=== PATIENT | female | born 1965 | race Caucasian/White ===

== ENCOUNTER 2017-02-15 09:26 | Emergency (ER) | payer SELFPAY ==
[2017-02-15 09:46] VITALS: TEMP 97.9; O2SAT 97
--- NOTE | 2017-02-15 10:58 | RAD ---
EXAM DESCRIPTION: Chest,2 Views CLINICAL HISTORY: 51 years, Female, sob, edema, wt gain COMPARISON: July 2007 FINDINGS: Slightly shallow inspiration. No definite consolidation. Borderline heart size. Mild elevation right hemidiaphragm. IMPRESSION: Chronic lung change with borderline heart size Electronically signed by: Jomar Queen MD 02/15/2017 10:58 AM CDT
[2017-02-15 11:22] VITALS: BP 117/69
--- NOTE | 2017-02-15 11:30 | ED.PDOC ---
History of Present Illness - General Chief Complaint: Cardiovascular Problem Stated Complaint: swelling in lower legs Time Seen by Provider: 02/15/17 09:47 Source: patient Exam Limitations: no limitations - History of Present Illness Initial Comments: the patient is a 51-year-old female presenting to the emergency room secondary to symptoms of shortness of breath and leg swelling. The patient quit doing methamphetamines approximately 3 months ago and has started antidepressant and antipsychotic medications with [facility]. Since that time she reports that she is gaining more than 60 pounds. She also reports that she does have a history of hypothyroidism and has been off her Synthroid for more than 3 years. No chest pain. No cough. No syncope or near syncope. No palpitations. No history of any coronary artery disease. She does have a history of hepatitis C. No recent urinary symptoms. No orthopnea or paroxysmal nocturnal dyspnea. her appetite has of coarse increased since going off of the methamphetamines and starting antipsychotic medications. Timing/Duration: constant Severity: moderate Improving Factors: rest Worsening Factors: movement Associated Symptoms: malaise Allergies/Adverse Reactions: Allergies NO KNOWN ALLERGY Allergy (Verified 03/01/15 11:39) Home Medications: Ambulatory Orders Cephalexin Monohydrate [Keflex] 500 mg PO TID #15 cap 02/15/17 Hydrochlorothiazide 12.5 mg PO DAILY #14 tab 02/15/17 Levothyroxine Sodium [Synthroid] 125 mcg PO DAILY #30 tab 02/15/17 Risperidone [Risperdal] 2 mg PO BID 02/15/17 Trazodone HCl 100 mg PO BEDTIME 02/15/17 Review of Systems - Review of Systems Constitutional: States: malaise EENTM: States: no symptoms reported Respiratory: States: short of breath Cardiology: States: no symptoms reported Gastrointestinal/Abdominal: States: no symptoms reported Genitourinary: States: no symptoms reported Musculoskeletal: States: muscle stiffness Skin: States: no symptoms reported Neurological: States: anxiety, depressed Endocrine: States: no symptoms reported All other Systems: No Change from Baseline Past Medical History (General) - Patient Medical History Hx Seizures: No Hx Stroke: No Hx Asthma: No Hx of COPD: No Hx Cardiac Disorders: No Hx Congestive Heart Failure: No Hx Pacemaker: No Hx Hypertension: No Hx Thyroid Disease: Yes Hx Diabetes: No Hx Hepatitis C: Yes Hx MRSA: Yes - Abdomen Wound MRSA Source:: Wound Surgical History: cholecystectomy - Vaccination History Hx Tetanus, Diphtheria Vaccination: - >5 yrs Hx Influenza Vaccination: No - Social History Hx Tobacco Use: Yes Hx Alcohol Use: No 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, Meth Hx Physical Abuse: No Hx Emotional Abuse: No - Female History Patient : No Family Medical History - Family History Mother Name: Nuris Sandoval Age (years): 67 Living Status: Still Living Hx Family Asthma: No Hx Family Congestive Heart Failure: No Hx Family Hypertension: No Hx Family Stroke: No Hx Cardiac Disease: No Hx Family Diabetes: No Hx Family Cancer: Yes - breast Physical Exam - Physical Exam General Appearance: Alert, Comfortable, No apparent distress Eye Exam: bilateral normal Ears, Nose, Throat: normal ENT inspection, normal pharynx Neck: full range of motion, supple, normal inspection Respiratory: chest non-tender, lungs clear, normal breath sounds, no respiratory distress, no accessory muscle use Cardiovascular/Chest: normal peripheral pulses, regular rate, rhythm Peripheral Pulses: radial,right: 2+, radial,left: 2+, dorsalis pedis,right: 2+, dorsalis pedis,left: 2+, posterior tibialis,right: 2+, posterior tibialis,left: 2+ Gastrointestinal/Abdominal: non tender, soft - bese Rectal Exam: deferred Back Exam: normal inspection, no CVA tenderness, no vertebral tenderness Extremity: normal range of motion, non-tender, no calf tenderness, normal capillary refill, pedal edema - 1+ to bilateral lower extremities Neurologic: alert, normal mood/affect, oriented x 3 Skin Exam: normal color Comments: Vital Signs - 24 hr 02/15/17 02/15/17 09:41 11:22 Temperature 97.9 F Pulse Rate [ 98 H 79 Right Brachial] Respiratory 20 16 Rate Blood Pressure 127/83 117/69 [Right Arm] O2 Sat by Pulse 97 97 Oximetry Progress - Progress Progress: 02/15/17 11:32 the patient is a 51-year-old female presenting to the emergency room primarily due to increasing shortness of breath with activity and some swelling on her legs and increasing difficulty getting around. I do believe most of this is due to her significant weight gain. For the edema the patient will be placed on hydrochlorothiazide 12.5 mg daily for the next couple of weeks. The patient does have significant hypothyroidism as evidenced by lab work today that is likely contributing as well. She is going to be placed on 125 g of Synthroid daily for one month. She will need to have this followed up in 1 month for reevaluation. The patient also has a small urinary tract infection and will be placed on Keflex 3 times daily for 5 days. The appetite stimulant effects of the psychiatric medications may be increasing her weight gain, however at this point in time they are necessary. It is possible the patient may be starting to experience some other side effects from these medications and she has been encouraged to discuss them with her psychiatrist to see if she needs to be started on something along the lines of Cogentin. This may aid in her progressive ambulatory difficulties. ER warnings were given. She does need to get set up with a primary care doctor. She does need to be treated for her hepatitis C, after her acute medical needs are dealt with. - Results/Orders Results/Orders: Laboratory Tests 02/15/17 02/15/17 02/15/17 09:48 10:00 10:00 WBC 8.2 RBC 4.50 Hgb 13.9 Hct 41.0 MCV 91.1 MCH 31.0 MCHC 34.0 RDW 13.8 Plt Count 162 MPV 8.2 Absolute Neuts (auto) 5.00 Absolute Lymphs (auto) 2.20 Absolute Monos (auto) 0.60 Absolute Eos (auto) 0.30 Absolute Basos (auto) 0.10 Neutrophils % 61.7 Lymphocytes % 26.6 Monocytes % 7.4 Eosinophils % 3.1 Basophils % 1.2 Sodium 136 Potassium 3.7 Chloride 103 Carbon Dioxide 27 Anion Gap 9.7 L BUN 14 Creatinine 0.63 BUN/Creatinine Ratio 22.2 H Random Glucose 130 H Serum Osmolality 274.2 L Calcium 8.8 Total Bilirubin 0.7 AST 87 H ALT 116 H Alkaline Phosphatase 83 Creatine Kinase 203 H* CK-MB (CK-2) 3.4 CK-MB (CK-2) % Not Reportable Troponin I < 0.02 B-Natriuretic Peptide 23.3 Serum Total Protein 7.3 Albumin 3.4 Globulin 3.9 H Albumin/Globulin Ratio 0.9 L TSH 15.84 H Urine Color Urine Appearance Urine pH Ur Specific [place] Urine Protein Urine Glucose (UA) Urine Ketones Urine Blood Urine Nitrite Urine Bilirubin Urine Urobilinogen Ur Leukocyte Esterase Urine RBC Urine WBC Ur Epithelial Cells Urine Bacteria Urine Trichomonas Urine HCG, Qual Negative 02/15/17 10:30 WBC RBC Hgb Hct MCV MCH MCHC RDW Plt Count MPV Absolute Neuts (auto) Absolute Lymphs (auto) Absolute Monos (auto) Absolute Eos (auto) Absolute Basos (auto) Neutrophils % Lymphocytes % Monocytes % Eosinophils % Basophils % Sodium Potassium Chloride Carbon Dioxide Anion Gap BUN Creatinine BUN/Creatinine Ratio Random Glucose Serum Osmolality Calcium Total Bilirubin AST ALT Alkaline Phosphatase Creatine Kinase CK-MB (CK-2) CK-MB (CK-2) % Troponin I B-Natriuretic Peptide Serum Total Protein Albumin Globulin Albumin/Globulin Ratio TSH Urine Color Yellow Urine Appearance Clear Urine pH 5.5 Ur Specific [place] 1.020 Urine Protein Negative Urine Glucose (UA) Negative Urine Ketones Negative Urine Blood Small H Urine Nitrite Negative Urine Bilirubin Negative Urine Urobilinogen 0.2 Ur Leukocyte Esterase Moderate H Urine RBC 5-10 H Urine WBC 5-10 H Ur Epithelial Cells 5-10 Urine Bacteria 1+ Urine Trichomonas 0-1 H Urine HCG, Qual chest x-ray shows no gross evidence of fluid overload. No pneumonia. EKG shows normal sinus rhythm with a mild right axis deviation. Mild left atrial dilation. No acute ST segment changes concerning for ischemia. Normal QT and SD intervals. Departure - Departure Clinical Impression: Peripheral edema, Cystitis Hypothyroidism Qualifiers: Hypothyroidism type: unspecified Qualified Code(s): E03.9 - Hypothyroidism, unspecified Disposition: Discharge to Home or Self Care Condition: Fair Departure Forms: ED Discharge - Pt. Copy, Patient Portal Self Enrollment Instructions: DI for Hypothyroidism, DI for Peripheral Edema -- Bilateral, DI for Urinary Tract Infection (UTI) Diet: low fat, low cholesterol Activity: increase activity as tolerated Prescriptions: Cephalexin Monohydrate [Keflex] 500 mg PO TID #15 cap Hydrochlorothiazide 12.5 mg PO DAILY #14 tab Levothyroxine Sodium [Synthroid] 125 mcg PO DAILY #30 tab Home Medications: Ambulatory Orders Cephalexin Monohydrate [Keflex] 500 mg PO TID #15 cap 02/15/17 Hydrochlorothiazide 12.5 mg PO DAILY #14 tab 02/15/17 Levothyroxine Sodium [Synthroid] 125 mcg PO DAILY #30 tab 02/15/17 Risperidone [Risperdal] 2 mg PO BID 02/15/17 Trazodone HCl 100 mg PO BEDTIME 02/15/17 Additional Instructions: the patient is a 51-year-old female presenting to the emergency room primarily due to increasing shortness of breath with activity and some swelling on her legs and increasing difficulty getting around. I do believe most of this is due to her significant weight gain. For the edema the patient will be placed on hydrochlorothiazide 12.5 mg daily for the next couple of weeks. The patient does have significant hypothyroidism as evidenced by lab work today that is likely contributing as well. She is going to be placed on 125 g of Synthroid daily for one month. She will need to have this followed up in 1 month for reevaluation. The patient also has a small urinary tract infection and will be placed on Keflex 3 times daily for 5 days. The appetite stimulant effects of the psychiatric medications may be increasing her weight gain, however at this point in time they are necessary. It is possible the patient may be starting to experience some other side effects from these medications and she has been encouraged to discuss them with her psychiatrist to see if she needs to be started on something along the lines of Cogentin. This may aid in her progressive ambulatory difficulties. ER warnings were given. She does need to get set up with a primary care doctor. She does need to be treated for her hepatitis C, after her acute medical needs are dealt with.
== END 2017-02-15 11:51 | disposition home or self-care (01) ==
LOC: ER 09:26
DX: N30.90 Cystitis, unspecified without hematuria (principal); R60.0 Localized edema; Z86.14 Personal history of Methicillin resistant Staphylococcus aureus infection; B19.20 Unspecified viral hepatitis C without hepatic coma; Z79.899 Other long term (current) drug therapy

== ENCOUNTER → 2017-04-22 | Outpatient (CLI) | payer MEDICAID ==
--- NOTE | 2017-04-23 04:30 | RAD ---
Procedure: XR CHEST 2 VIEWS Exam Date: 04/22/2017 Ordering Provider: Mira Reddy Clinical Indication: WHEEZING Comparison: 02/15/2017 Findings: Cardiac silhouette: Normal Pulmonary vasculature : Normal Mediastinal contour: Stable when compared to prior Aortic contour: Tortuous Focal lung consolidation: None Pleural effusion: None Pneumothorax: None Acute bony or soft tissue abnormality: None Impression: 1. No acute abnormalities in the chest. Electronically signed by: Kel Uriostegui MD 04/23/2017 4:29 AM CDT
--- NOTE | 2017-04-25 08:34 | RAD ---
EXAM DESCRIPTION: Thoracic Spine,AP Lateral CLINICAL HISTORY: 51 years Female, SCOLIOSIS COMPARISON: None. FINDINGS: Three views of the thoracic spine demonstrate moderate C shaped scoliosis of the thoracic spine convex to the right. Curvature is centered at the T8-T9 level. Angulation is estimated at 40 degrees, convex to the right. No hemivertebra or other anomalies noted. IMPRESSION: Scoliosis of the thoracic spine convex to the right centered at T8-9 and estimated at 40 degrees. Electronically signed by: Jeremy Merrill MD 04/25/2017 8:33 AM CDT
== END ==
LOC: YCFC.O 11:04
PROVIDERS: ATTEND Nurse Practitioner Family
DX: R06.2 Wheezing (principal); F17.290 Nicotine dependence, other tobacco product, uncomplicated; M41.9 Scoliosis, unspecified; R79.89 Other specified abnormal findings of blood chemistry; E03.9 Hypothyroidism, unspecified; B18.2 Chronic viral hepatitis C; F41.8 Other specified anxiety disorders; R03.0 Elevated blood-pressure reading, without diagnosis of hypertension; F19.21 Other psychoactive substance dependence, in remission; Z68.45 Body mass index [BMI] 70 or greater, adult; Z13.220 Encounter for screening for lipoid disorders

== ENCOUNTER → 2017-04-26 | Outpatient (CLI) | payer MEDICAID ==
--- NOTE | 2017-04-26 11:48 | US ---
EXAM DESCRIPTION: Thyroid CLINICAL HISTORY: 51 years Female, Hypothyroidism COMPARISON: None. FINDINGS: The thyroid gland is small with the right lobe measuring 3.2 x 1.1 x 0.5 cm and the left lobe measuring 2.1 x 0.9 x 0.5 cm. The isthmus is 2 mm in thickness. No cystic or solid masses or significant enlargement of the thyroid is noted. No evidence of goiter or fluid collection or other abnormality seen. IMPRESSION: No evidence of focal mass or enlargement is noted with a very small atrophic appearing thyroid bilaterally. Electronically signed by: Jeremy Merrill MD 04/26/2017 11:47 AM CDT
== END ==
LOC: US 08:57
PROVIDERS: ATTEND Nurse Practitioner Family
DX: E03.9 Hypothyroidism, unspecified (principal); F17.290 Nicotine dependence, other tobacco product, uncomplicated; R06.2 Wheezing; M41.9 Scoliosis, unspecified; R79.89 Other specified abnormal findings of blood chemistry

== ENCOUNTER → 2017-05-25 | Outpatient (CLI) | payer MEDICAID | END | disposition home or self-care (01) | LOC: YCFC.O 11:13 | PROVIDERS: ATTEND Nurse Practitioner Family | DX: E03.9 Hypothyroidism, unspecified (principal) ==

== ENCOUNTER → 2017-08-02 | Outpatient (CLI) | payer OTHER | END | disposition home or self-care (01) | LOC: LAB.O 10:54 | PROVIDERS: ATTEND Nurse Practitioner Family | DX: E03.9 Hypothyroidism, unspecified (principal) ==

== ENCOUNTER → 2017-08-03 | Outpatient (CLI) | payer OTHER ==
--- NOTE | 2017-08-08 10:53 | MAM ---
EXAM DESCRIPTION: 3D Screening BILATERAL : Digital Mammography. CLINICAL HISTORY: 51 years Female SCREENING . No complaints. Mother with breast cancer. Postmenopausal. No HRT. COMPARISON: Baseline study at this facility.. No prior reports available. TECHNIQUE: Bilateral CC and MLO projection full-field images, 3-D tomosynthesis digital mammographic technique. Also bilateral synthesized CC/ MLO full-field images. CAD not utilized. FINDINGS: The breast parenchymal density pattern is: Scattered areas of fibroglandular density. No skin thickening or nipple retraction left breast axillary lymph nodes. Region of focal asymmetry in the middle third of the right breast approximately 10 cm from the nipple at the 1200 clock position. No associated calcifications. No focal, stellate mass or density, focal asymmetry , and no suspicious microcalcifications left breast. IMPRESSION: BI-RADS CATEGORY: 0 - INCOMPLETE- Need additional imaging evaluation. FOLLOW-UP: Recall for additional imagin-D tomosynthesis, LM full-field right breast imaging. Follow-up with targeted ultrasound region of interest in the right breast. Written communication concerning the IMPRESSION and Follow-up, will be mailed to the patient and referring health care provider. Electronically signed by: Pepe Altamirano MD 08/08/2017 10:52 AM CDT
== END ==
LOC: MAMMO 15:30
PROVIDERS: ATTEND Nurse Practitioner Family
DX: Z12.31 Encounter for screening mammogram for malignant neoplasm of breast (principal)
CPT/HCPCS: 77063; G0202

== ENCOUNTER → 2017-10-17 | Outpatient (CLI) | payer OTHER ==
--- NOTE | 2017-10-18 09:55 | MAM ---
EXAM DESCRIPTION: 3D Diagnostic, Right: Digital Mammography CLINICAL HISTORY: 52 yearsFemaleABNORMAL MAMMO focal asymmetry upper mid right breast.. COMPARISON: 3-D bilateral breast tomosynthesis screening 08/03/2017. Report from prior examination also reviewed. TECHNIQUE: Left LM projection full-field images, 3-D tomosynthesis digital mammographic technique. Also left synthesized LM full-field images. CAD not utilized. FINDINGS: The breast parenchymal density pattern is: Scattered areas of fibroglandular density. No skin thickening or nipple retraction focal asymmetry again noted at the 1200 clock position of the right breast approximately 10 cm from the nipple. ULTRASOUND: Scanning of the 1200 clock position of the right breast 7 - 9 cm from the nipple. Several small cysts and hypoechoic lymph nodes are visualized less than 1 cm diameter. Parallel orientation no significant posterior features. No discrete solid mass or calcification. No skin changes or parenchymal edema. IMPRESSION: BI-RADS CATEGORY: 2 - BENIGN FINDINGS. FOLLOW UP: Return to routine digital bilateral screening, one year interval from July 2017. The FINDINGS and the follow-up plan were reviewed in person with the patient after the examination. Written communication explaining the IMPRESSION and follow-up will be mailed to the patient and referring care provider. According to the [employer], yearly mammograms are recommended starting at age 40 and continuing as long as a woman is in good health. Any breast change noted on a breast self-exam should be reported promptly to the patient's healthcare provider. Breast MRI is recommended for women with an approximately 20-25% or greater lifetime risk of breast cancer, including women with a strong family history of breast or ovarian cancer and women who have been treated for Hodgkin's disease. A negative mammographic report should not delay tissue diagnosis in patients with significant clinical history or physical findings. Extremely dense breast tissue limits the sensitivity of digital mammography. Electronically signed by: Pepe Altamirano MD 10/18/2017 9:54 AM [employer]
--- NOTE | 2017-10-18 09:56 | US ---
EXAM DESCRIPTION: Breast,Right: Ultrasound CLINICAL HISTORY: 52 yearsFemaleABNORMAL MAMMO. Focal asymmetry in the right breast. COMPARISON: Digital 3-D tomosynthesis diagnostic mammography right breast on the same visit. TECHNIQUE: Transcutaneous scanning of the superior right breast utilizing two-dimensional and Doppler modes. Scanning performed by the motorcycle mechanic and Dr. Altamirano. FINDINGS: Scanning of the 1200 clock position of the right breast 7 - 9 cm from the nipple. Several small cysts and hypoechoic lymph nodes are visualized less than 1 cm diameter. Parallel orientation no significant posterior features. No discrete solid mass or calcification. No skin changes or parenchymal edema. IMPRESSION: 1. Bi-Rads Category 2: Benign. 2. Please refer to right breast 3-D tomosynthesis diagnostic mammography examination and report on this visit. The FINDINGS and the follow-up plan were reviewed in person with the patient after the examination. Written communication explaining the IMPRESSION and follow-up will be mailed to the patient and referring care provider. Electronically signed by: Pepe Altamirano MD 10/18/2017 9:55 AM [facility]
== END ==
LOC: MAMMO 11:00
PROVIDERS: ATTEND Nurse Practitioner Family
DX: R92.8 Other abnormal and inconclusive findings on diagnostic imaging of breast (principal)
CPT/HCPCS: 76641; 77065; G0279

== ENCOUNTER 2017-11-15 04:56 | Emergency (ER) | payer OTHER ==
[2017-11-15 05:09] VITALS: TEMP 100.3
[2017-11-15] MEDS ORDERED: OSELTAMIVIR 75 MG CAP PO ONE (05:32)
[2017-11-15] MEDS ORDERED: IBUPROFEN 200 MG TAB PO ONE (05:32)
[2017-11-15] MEDS ORDERED: IPRATROPIUM/ALBUTEROL 3 ML VIAL NEB ONE (05:37)
[2017-11-15] MEDS ORDERED: HYDROcodone 5MG/APAP 325MG 1 EA TAB PO ONE (05:37)
--- NOTE | 2017-11-15 05:42 | ED.PDOC ---
History of Present Illness - General Chief Complaint: Fever Stated Complaint: coughing, chills, fever Time Seen by Provider: 11/15/17 05:32 Source: patient Exam Limitations: no limitations - History of Present Illness Initial Comments: the patient is a 52-year-old female present to emergency room secondary to symptoms that started 24 hours ago. She started developing a cough and a mild runny nose. No sore throat. Headache started last night. This morning she is having an increased cough and some mild shortness of breath. She has smoked for many years but has never apparently been diagnosed with COPD. She does have a headache. She does have generalized body aches. No syncope or near syncope.no altered mental status. No GI symptoms. Timing/Duration: 24 hours Severity: moderate Improving Factors: nothing Worsening Factors: nothing Associated Symptoms: cough, diaphoresis, fever/chills, headaches, loss of appetite, malaise, shortness of breath Allergies/Adverse Reactions: Allergies NO KNOWN ALLERGY Allergy (Verified 11/15/17 05:09) Home Medications: Ambulatory Orders Cephalexin Monohydrate [Keflex] 500 mg PO TID #15 cap 02/15/17 Hydrochlorothiazide 12.5 mg PO DAILY #14 tab 02/15/17 Levothyroxine Sodium [Synthroid] 125 mcg PO DAILY #30 tab 02/15/17 Risperidone [Risperdal] 2 mg PO BID 02/15/17 Trazodone HCl 100 mg PO BEDTIME 02/15/17 Albuterol Inhaler [Ventolin Hfa Inhaler] 1 puff INH Q6HRS #1 inh 11/15/17 Oseltamivir Capsule [Tamiflu] 75 mg PO BID 5 Days #10 capsule 11/15/17 Review of Systems - Review of Systems Constitutional: States: chills, diaphoresis, fever, malaise EENTM: States: nose congestion Respiratory: States: cough, short of breath Cardiology: States: no symptoms reported Gastrointestinal/Abdominal: States: no symptoms reported Genitourinary: States: no symptoms reported Musculoskeletal: States: other - body aches Skin: States: no symptoms reported Neurological: States: headache Endocrine: States: no symptoms reported Hematologic/Lymphatic: States: no symptoms reported All other Systems: No Change from Baseline Past Medical History (General) - Patient Medical History Hx Seizures: No Hx Stroke: No Hx Asthma: No Hx of COPD: No Hx Cardiac Disorders: No Hx Congestive Heart Failure: No Hx Pacemaker: No Hx Hypertension: Yes Hx Thyroid Disease: Yes Hx Diabetes: No Hx Gastroesophageal Reflux: No Hx Renal Disease: No Hx Cancer: No Hx Hepatitis C: Yes Hx MRSA: Yes - Abdomen Wound MRSA Source:: Wound - Vaccination History Hx Tetanus, Diphtheria Vaccination: - >5 yrs Hx Influenza Vaccination: No - Social History Hx Tobacco Use: Yes Hx Alcohol Use: No 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, Meth Hx Physical Abuse: No Hx Emotional Abuse: No - Female History Patient : No Family Medical History - Family History Mother Name: Nuris Sandoval Age (years): 67 Living Status: Still Living Hx Family Asthma: No Hx Family Congestive Heart Failure: No Hx Family Hypertension: No Hx Family Stroke: No Hx Cardiac Disease: No Hx Family Diabetes: No Hx Family Cancer: Yes - breast Physical Exam - Physical Exam General Appearance: Alert, Anxious, Other - coughing significantly Eye Exam: bilateral normal Ears, Nose, Throat: hearing grossly normal, nasal congestion Neck: full range of motion, supple Respiratory: normal breath sounds - though coughing very frequently. She has good air movement., no respiratory distress, no accessory muscle use Cardiovascular/Chest: normal peripheral pulses, no edema, tachycardia Peripheral Pulses: radial,right: 2+, radial,left: 2+ Gastrointestinal/Abdominal: non tender - morbidly obese, soft Rectal Exam: deferred Back Exam: normal inspection, no CVA tenderness, no vertebral tenderness Extremity: normal range of motion, non-tender, normal inspection, normal capillary refill, pedal edema - race to bilateral lower extremities Neurologic: manager real estate II-XII nml as tested, alert, normal mood/affect, oriented x 3 Skin Exam: normal color Comments: Vital Signs - 24 hr 11/15/17 11/15/17 05:00 05:06 Temperature 100.3 F H Pulse Rate [ 114 H monitor] Respiratory 24 24 Rate Blood Pressure 141/91 [Left Arm] O2 Sat by Pulse 94 L Oximetry Progress - Progress Progress: 11/15/17 06:43 the patient is a 52-year-old female presenting with the flu with fairly significant cough. She does likely have a small COPD exacerbation due to the flu. The patient is going to be written for an albuterol inhaler to be used at least 4 times daily for the next week. A breathing treatment did seem to help her today. She also needs to continue with the Motrin and Tylenol to keep the fever down which will also help with the headache and can reduce the cough itself. She is to keep herself well-hydrated. She needs to follow up with her primary care doctor in 2-3 days for reevaluation. ER warnings were given. She obviously needs to not smoke while she has is going on. - Results/Orders Results/Orders: The patient has tested positive for influenza. Chest x-ray shows no active infiltrates. Departure - Departure Clinical Impression: Acute exacerbation of COPD with asthma, Influenza Disposition: Discharge to Home or Self Care Condition: Fair Departure Forms: ED Discharge - Pt. Copy, Patient Portal Self Enrollment Instructions: Influenza Diet: regular diet Activity: increase activity as tolerated Referrals: Mira Reddy NP [Primary Care Provider] - 1-5 Days Prescriptions: Albuterol Inhaler [Ventolin Hfa Inhaler] 1 puff INH Q6HRS #1 inh Oseltamivir Capsule [Tamiflu] 75 mg PO BID 5 Days #10 capsule Home Medications: Ambulatory Orders Cephalexin Monohydrate [Keflex] 500 mg PO TID #15 cap 02/15/17 Hydrochlorothiazide 12.5 mg PO DAILY #14 tab 02/15/17 Levothyroxine Sodium [Synthroid] 125 mcg PO DAILY #30 tab 02/15/17 Risperidone [Risperdal] 2 mg PO BID 02/15/17 Trazodone HCl 100 mg PO BEDTIME 02/15/17 Albuterol Inhaler [Ventolin Hfa Inhaler] 1 puff INH Q6HRS #1 inh 11/15/17 Oseltamivir Capsule [Tamiflu] 75 mg PO BID 5 Days #10 capsule 11/15/17 Additional Instructions: the patient is a 52-year-old female presenting with the flu with fairly significant cough. She does likely have a small COPD exacerbation due to the flu. The patient is going to be written for an albuterol inhaler to be used at least 4 times daily for the next week. A breathing treatment did seem to help her today. She also needs to continue with the Motrin and Tylenol to keep the fever down which will also help with the headache and can reduce the cough itself. She is to keep herself well-hydrated. She needs to follow up with her primary care doctor in 2-3 days for reevaluation. ER warnings were given. She obviously needs to not smoke while she has is going on.
--- NOTE | 2017-11-15 06:19 | RAD ---
Procedure: XR CHEST 2 VIEWS Exam Date: 11/15/2017 Ordering Provider: Josue Morocho Clinical Indication: sob with flu, no hypoxia Comparison: 04/22/2017 Findings: Cardiomediastinal silhouette: Unremarkable Pulmonary vasculature : Unremarkable Focal lung consolidation: None Pleural effusion: None Pneumothorax: None Bones and soft tissues: Nonacute Impression: 1. No acute abnormalities in the chest. 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
[2017-11-15 06:58] VITALS: BP 87/55; O2SAT 93
== END 2017-11-15 06:59 | disposition home or self-care (01) ==
LOC: ER 04:56
DX: J11.1 Influenza due to unidentified influenza virus with other respiratory manifestations (principal); J45.901 Unspecified asthma with (acute) exacerbation; I10 Essential (primary) hypertension; E07.9 Disorder of thyroid, unspecified
CPT/HCPCS: 71046; 87502; 94640; J7620

== ENCOUNTER 2018-01-03 15:48 | Emergency (ER) | payer MEDICAID, SELFPAY ==
[2018-01-03 16:06] VITALS: TEMP 98.4
[2018-01-03] MEDS ORDERED: IPRATROPIUM/ALBUTEROL 3 ML VIAL NEB ONE (16:10)
--- NOTE | 2018-01-03 16:49 | RAD ---
EXAM DESCRIPTION: Chest,2 Views CLINICAL HISTORY: sob, cough COMPARISON: November 15, 2017 FINDINGS: Two-view chest x-ray shows cardiomediastinal silhouette and pulmonary vasculature to be within normal limits. The lungs are normally aerated and clear. Calcified density at the lower esophageal region is again noted. Costophrenic angles are sharp. Mild to moderate dextrocurvature of the lower thoracic spine is seen. IMPRESSION: No radiographic evidence of acute cardiopulmonary disease. Electronically signed by: Shaun Yi MD 01/03/2018 4:47 PM CDT
[2018-01-03] MEDS ORDERED: predniSONE 20 MG TAB PO ONE (17:07)
[2018-01-03] MEDS ORDERED: CETIRIZINE HCL 10 MG TAB PO ONE (17:07)
[2018-01-03] MEDS ORDERED: AZITHROMYCIN 250 MG TAB PO ONE (17:07)
--- NOTE | 2018-01-03 17:15 | ED.PDOC ---
History of Present Illness - General Chief Complaint: Respiratory Problem Stated Complaint: cough,congestion Time Seen by Provider: 01/03/18 16:07 Source: patient Exam Limitations: no limitations - History of Present Illness Initial Comments: the patient is a 52-year-old female presenting to the emergency room secondary to cough and shortness of breath worsening over the last 24-48 hours. She has had a few episodes in the last couple of years where she has developed respiratory tract infections and had a significant reactive airway component. The patient does smoke. She denies any fevers and does have a minimally productive sputum. She is coughing heavily upon exam. She does have scattered rales and rhonchi. Air movement is decreased bilaterally. She does have some wheezes as well. Timing/Duration: 24 hours Severity: moderate Improving Factors: nothing Worsening Factors: nothing Associated Symptoms: cough, malaise, shortness of breath Allergies/Adverse Reactions: Allergies NO KNOWN ALLERGY Allergy (Verified 11/15/17 05:09) Home Medications: Ambulatory Orders Albuterol Inhaler [Ventolin Hfa Inhaler] 1 puff INH Q6HRS #1 inh 11/15/17 OXcarbazepine [Trileptal] 300 mg PO BID 01/03/18 Trazodone HCl [Trazodone HCl] 100 mg PO BEDTIME 01/03/18 Review of Systems - Review of Systems Constitutional: States: malaise EENTM: States: no symptoms reported Respiratory: States: cough, short of breath, wheezing Cardiology: States: no symptoms reported Gastrointestinal/Abdominal: States: no symptoms reported Genitourinary: States: no symptoms reported Musculoskeletal: States: no symptoms reported Skin: States: no symptoms reported Neurological: States: no symptoms reported All other Systems: No Change from Baseline Past Medical History (General) - Patient Medical History Hx Seizures: No Hx Stroke: No Hx Asthma: No Hx of COPD: No Hx Cardiac Disorders: No Hx Congestive Heart Failure: No Hx Pacemaker: No Hx Hypertension: Yes Hx Thyroid Disease: Yes Hx Diabetes: No Hx Gastroesophageal Reflux: No Hx Renal Disease: No Hx Cancer: No Hx Hepatitis C: Yes Hx MRSA: Yes - Abdomen Wound MRSA Source:: Wound Surgical History: cholecystectomy - Vaccination History Hx Tetanus, Diphtheria Vaccination: No Hx Influenza Vaccination: Yes Hx Pneumococcal Vaccination: No - Social History Hx Tobacco Use: Yes Hx Alcohol Use: No 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, Meth Hx Physical Abuse: No Hx Emotional Abuse: No - Female History Patient : No Family Medical History - Family History Mother Name: Nuris Sandoval Age (years): 67 Living Status: Still Living Hx Family Asthma: No Hx Family Congestive Heart Failure: No Hx Family Hypertension: No Hx Family Stroke: No Hx Cardiac Disease: No Hx Family Diabetes: No Hx Family Cancer: Yes - breast Physical Exam - Physical Exam General Appearance: Alert, No apparent distress Eye Exam: bilateral normal Ears, Nose, Throat: hearing grossly normal, normal ENT inspection, normal pharynx Neck: full range of motion, supple, normal inspection Respiratory: decreased breath sounds, accessory muscle use - mild, rales, rhonchi, wheezing Cardiovascular/Chest: normal peripheral pulses, regular rate, rhythm, no edema Peripheral Pulses: radial,right: 2+, radial,left: 2+, dorsalis pedis,right: 2+, dorsalis pedis,left: 2+ Gastrointestinal/Abdominal: non tender - obese, soft Rectal Exam: deferred Back Exam: normal inspection, no CVA tenderness Extremity: normal range of motion, non-tender, normal inspection, no pedal edema , normal capillary refill Neurologic: spanish speaking 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 She needs to stop smoking. The patient received doses of azithromycin, Singulair, prednisone, Zyrtec and DuoNeb 's here. She'll be written for outpatient Singulair, prednisone and azithromycin along with an albuterol inhaler. She needs to keep herself well- hydrated. ER warnings were given for any significant worsening. Chest x-ray was reassuring and no focal pneumonia was seen. She needs to follow up with her primary care doctor towards the end of the week. Departure - Departure Clinical Impression: Acute exacerbation of COPD with asthma Disposition: Discharge to Home or Self Care Condition: Fair Departure Forms: ED Discharge - Pt. Copy, Patient Portal Self Enrollment Instructions: DI for Asthma -- Adult Diet: regular diet Activity: increase activity as tolerated Referrals: Mira Reddy, [employer] [Primary Care Provider] - 1-2 Weeks Home Medications: Ambulatory Orders Albuterol Inhaler [Ventolin Hfa Inhaler] 1 puff INH Q6HRS #1 inh 11/15/17 OXcarbazepine [Trileptal] 300 mg PO BID 01/03/18 Trazodone HCl [Trazodone HCl] 100 mg PO BEDTIME 01/03/18 Additional Instructions: The patient's a 46-year-old male presenting to the emergency room due to what appears to be acute pulmonary edema. This apparently started with some hypotension and hypoxia at dialysis and may be contributed to by background pneumonia given his history. His white blood cell count is lower than normal for him. I'm uncertain at this time if this is simply a factor of his chronic disease or if this is an indicator of sepsis for this patient. lactic acid was within normal limits. A blood culture has been performed. His blood pressures have normalized and his lungs are clearing nicely. He is receiving a dose of cefepime and azithromycin for the likelihood of the background pneumonia or bronchitis triggering his deterioration. He has received a dose of IV Lasix here however he has as of yet been unable to urinate. Supplemental oxygen will be maintained on this patient. He has not seen a construction worker in 2 years however I suspect very poor heart function. He does have significantly elevated BNP, d-dimer and CK-MB. the reliability of these tests is certainly deteriorated given his poor kidney function. He does not have any history of any DVTs in the past. He is not having any chest pain. It would be worth repeating still the cardiac enzymes to make sure that his troponin doesn't bump. His EKG does not appear significantly changed from previous EKGs. Transferring to [facility] for continuation of renal and cardiac care which cannot be performed here.
[2018-01-03] MEDS ORDERED: MONTELUKAST 10 MG TAB ONE (17:31)
[2018-01-03 17:40] VITALS: BP 120/86; O2SAT 92
[2018-01-05] MEDS ORDERED: MONTELUKAST 10 MG TAB PO ONE (17:07)
== END 2018-01-03 17:42 | disposition home or self-care (01) ==
LOC: ER 15:48
DX: J44.1 Chronic obstructive pulmonary disease with (acute) exacerbation (principal); I10 Essential (primary) hypertension; E07.9 Disorder of thyroid, unspecified; Z87.891 Personal history of nicotine dependence
CPT/HCPCS: 71046; 94640; J7512; J7620; Q0144

== ENCOUNTER 2018-03-09 08:58 | Emergency (ER) | payer OTHER ==
[2018-03-09 09:14] VITALS: TEMP 97.8
--- NOTE | 2018-03-09 09:56 | RAD ---
EXAM DESCRIPTION: Knee,Left 2 or More Views CLINICAL HISTORY: 52 years Female, FALL WITH PAIN COMPARISON: None. FINDINGS: Two views of the left knee show no acute fracture or malalignment. The joint spaces are well-maintained. Question tiny left knee joint effusion. The soft tissues are otherwise unremarkable. IMPRESSION: Tiny left knee joint effusion, otherwise unremarkable exam. Electronically signed by: Baljinder Cedillo MD 03/09/2018 9:55 AM CDT
--- NOTE | 2018-03-09 10:32 | CT ---
EXAM DESCRIPTION: Cervical Spine: Computed Tomography. CLINICAL HISTORY: FALL WITH HEAD TRAUMA COMPARISON: CT scan of the head and CT scan of the cervical spine on this visit. TECHNIQUE: Spiral, axial 2.5 mm scans through the cervical spine without contrast. Coronal and sagittal 2.0 mm Reconstructions. No adverse reactions. Total Exam DLP: 477.75 mGy-cm. This exam was performed according to our departmental dose-optimization program which includes automated exposure control, adjustment of the mA and/or kV according to patient size and/or use of iterative reconstruction technique; to reduce radiation dose to as low as reasonably achievable (ALARA). FINDINGS: Small hypertrophic spurs on the superior atlantoaxial joint and bone density inferior to the anterior C1 arch not posttraumatic. Atlantooccipital joints and the bilateral C1-2 facets are negative. No significant disc bulging or disc space loss from C2-3 to T1-2. No significant facet hypertrophy or narrowing. No perched or locked facets. Bilateral foramina are patent at every level. No compression type vertebral body fractures. Posterior elements are intact with no fractures. Minimal levoscoliosis and kyphosis. IMPRESSION: 1. No acute fracture spondylolisthesis or subluxation. Posterior elements are intact. 2. Disc spaces and neural foramina are patent. No facet arthrosis or displacement. 3. Kyphosis and mild scoliosis most likely due to muscle spasm. Electronically signed by: Pepe Altamirano MD 03/09/2018 10:31 AM CDT
--- NOTE | 2018-03-09 10:38 | CT ---
EXAM DESCRIPTION: Head: Computed Tomography. CLINICAL HISTORY: FALL WITH HEAD TRAUMA COMPARISON: CT scan of the cervical spine noncontrast and left knee radiographs on this visit. TECHNIQUE: Non-helical axial scans through the skull and brain, at 2.5 mm intervals, non-contrast. Coronal and sagittal 2.0 mm reconstructions. Total Exam DLP: 685.29 mGy-cm. This exam was performed according to our departmental dose-optimization program which includes automated exposure control, adjustment of the mA and/or kV according to patient size and/or use of iterative reconstruction technique; to reduce radiation dose to as low as reasonably achievable (ALARA). FINDINGS: No hemorrhage, no mass-effect, and no midline shift. Normal arias-white matter differentiation. Small focal low-density in the posterior left basal ganglia most likely related to cyst or perivascular space. Vascular calcifications left ICA in the siphon; physiologic calcifications in the pineal gland and choroid plexus. No effacement or displacement of the ventricles, CSF spaces, or subdural spaces. No extra axial fluid collection or hemorrhage. No gross abnormalities of the bony calvarium. Included paranasal sinuses and mastoid air cells are well - aerated. IMPRESSION: 1. No hemorrhage, no mass effect, no midline shift. Physiologic appearance of the intra-axial brain. 2. CT scans are insensitive for detecting small CVAs in the first 24 hours after onset. Evaluation of the brain stem is also limited. If symptoms persist, consider NON-EMERGENT MRI scan of the brain with diffusion imaging. Electronically signed by: Pepe Altamirano MD 03/09/2018 10:37 AM CDT
[2018-03-09 11:14] VITALS: BP 125/81; O2SAT 95
--- NOTE | 2018-03-09 12:07 | ED.PDOC ---
History of Present Illness - General Chief Complaint: Syncope/Near Syncope Stated Complaint: syncope Time Seen by Provider: 03/09/18 09:11 Source: patient Exam Limitations: no limitations Additional Information: PT GOT STRAIGHT UP OUT OF BED THIS MORNING, BECAME DIZZY AND FELL FORWARD INTO DOOR FACING. NO LOC, C/O PAIN TO HEAD. 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 Severity: moderate Improving Factors: nothing Worsening Factors: nothing Associated Symptoms: other - NEAR SYNCOPE Allergies/Adverse Reactions: Allergies NO KNOWN ALLERGY Allergy (Verified 11/15/17 05:09) Home Medications: Ambulatory Orders Albuterol Inhaler [Ventolin Hfa Inhaler] 1 puff INH Q6HRS #1 inh 11/15/17 OXcarbazepine [Trileptal] 300 mg PO BID 01/03/18 Trazodone HCl [Trazodone HCl] 100 mg PO BEDTIME 01/03/18 Cephalexin Monohydrate [Keflex] 500 mg PO TID #15 cap 03/09/18 metFORMIN HCL [Glucophage] 500 mg PO BID 30 Days #60 tab 03/09/18 Review of Systems - Review of Systems Constitutional: Denies: chills, fever EENTM: Denies: eye pain, blurred vision, ear pain, nose congestion, throat pain Respiratory: Denies: cough, short of breath Cardiology: Denies: chest pain, palpitations, syncope Gastrointestinal/Abdominal: Denies: abdominal pain, nausea, vomiting Genitourinary: States: no symptoms reported Musculoskeletal: States: other - C/O PAIN TO L KNEE. Denies: back pain, neck pain Skin: States: other - LACERATION Neurological: States: headache. Denies: numbness, paresthesia, weakness Endocrine: States: no symptoms reported Hematologic/Lymphatic: States: no symptoms reported Past Medical History (General) - Patient Medical History Hx Seizures: No Hx Stroke: No Hx Asthma: No Hx of COPD: No Hx Cardiac Disorders: No Hx Congestive Heart Failure: No Hx Pacemaker: No Hx Hypertension: Yes Hx Thyroid Disease: Yes Hx Diabetes: No Hx Gastroesophageal Reflux: No Hx Renal Disease: No Hx Cancer: No Hx Hepatitis C: Yes Hx MRSA: Yes - Abdomen Wound MRSA Source:: Wound Surgical History: cholecystectomy, other - Vaccination History Hx Tetanus, Diphtheria Vaccination: No Hx Influenza Vaccination: No Hx Pneumococcal Vaccination: No Immunizations Comment: hep B series - Social History Hx Tobacco Use: Yes Hx Alcohol Use: No 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 JUST INTO SUBQ. Neck: non-tender, full range of motion, supple Respiratory: chest non-tender, lungs clear, normal breath sounds Cardiovascular/Chest: regular rate, rhythm, no murmur Gastrointestinal/Abdominal: non tender, soft, no organomegaly Back Exam: normal inspection, no vertebral tenderness Extremity: other - MILD ABRASION TO L PATELLA, MINIMAL EFFUSIONL. NO BONY ABN/ DEF. NVI Neurologic: flag signalman II-XII nml as tested, no motor/sensory deficits, alert, normal mood/affect, oriented x 3 Skin Exam: normal color, warm/dry, other - LINEAR LACERATION FRONTAL AREA WITH MILD EXTENSION JUST INTO SUBQ. Lymphatic: no adenopathy Progress - EKG/XRAY/CT EKG: Sinus - RATE 82, NL AXIS, NL INTERVALS, , nonspecific ST T wave Chg - NAIP , , Unchanged from - 02/15/17 XRAY: KNEE, NO FX + EFFUSION CT Ordered: Yes - HEAD AND C SPINE, NO ACUTE ABN. Procedures - Laceration/Wound Repair Face Wound Length (cm): 6 Wound's Depth, Shape: superficial Wound Explored: no foreign body removed Betadine Prep?: No - HIBICLEANSE Wound Repaired With: dermabond Layer Closure?: No Splint Applied?: No Departure - Departure Clinical Impression: New onset type 2 diabetes mellitus Laceration of forehead without complication Qualifiers: Encounter type: initial encounter Qualified Code(s): S01.81XA - Laceration without foreign body of other part of head, initial encounter Syncope Qualifiers: Syncope type: unspecified Qualified Code(s): R55 - Syncope and collapse Hypertension Qualifiers: Hypertension type: essential hypertension Qualified Code(s): I10 - Essential ( primary) hypertension Time of Disposition: 12:08 Disposition: Discharge to Home or Self Care Condition: Good Departure Forms: ED Discharge - Pt. Copy, Patient Portal Self Enrollment Instructions: DI for Syncope in Adults (Fainting), Type 2 Diabetes, DI for Laceration Repair With Dermabond Referrals: Mira Reddy, [employer]KE [employer]AY MAN [Primary Care Provider] - 1-2 Weeks Prescriptions: Cephalexin Monohydrate [Keflex] 500 mg PO TID #15 cap metFORMIN HCL [Glucophage] 500 mg PO BID 30 Days #60 tab Home Medications: Ambulatory Orders Albuterol Inhaler [Ventolin Hfa Inhaler] 1 puff INH Q6HRS #1 inh 11/15/17 OXcarbazepine [Trileptal] 300 mg PO BID 01/03/18 Trazodone HCl [Trazodone HCl] 100 mg PO BEDTIME 01/03/18 Cephalexin Monohydrate [Keflex] 500 mg PO TID #15 cap 03/09/18 metFORMIN HCL [Glucophage] 500 mg PO BID 30 Days #60 tab 03/09/18
== END 2018-03-09 12:15 | disposition home or self-care (01) ==
LOC: ER 08:58
DX: S01.81XA Laceration without foreign body of other part of head, initial encounter (principal); R55 Syncope and collapse; I10 Essential (primary) hypertension; E11.9 Type 2 diabetes mellitus without complications; E07.9 Disorder of thyroid, unspecified; Z86.14 Personal history of Methicillin resistant Staphylococcus aureus infection; Z86.19 Personal history of other infectious and parasitic diseases; Z87.891 Personal history of nicotine dependence; W19.XXXA Unspecified fall, initial encounter

== ENCOUNTER → 2018-04-25 | Outpatient (CLI) | payer OTHER | LOC: YCFC.O 10:09 | PROVIDERS: ATTEND Nurse Practitioner Family | DX: R73.09 Other abnormal glucose (principal); I10 Essential (primary) hypertension; E03.9 Hypothyroidism, unspecified; Z13.220 Encounter for screening for lipoid disorders ==

== ENCOUNTER → 2018-06-08 | Outpatient (CLI) | payer OTHER | LOC: YCFC.O 12:29 | PROVIDERS: ATTEND Nurse Practitioner Family | DX: E11.65 Type 2 diabetes mellitus with hyperglycemia (principal); E03.9 Hypothyroidism, unspecified ==

== ENCOUNTER 2018-09-09 12:54 | Emergency (ER) | payer SELFPAY ==
--- NOTE | 2018-09-09 13:21 | ED.PDOC ---
History of Present Illness - General Chief Complaint: GI Problem Stated Complaint: n/v/d Time Seen by Provider: 09/09/18 13:21 Source: patient Exam Limitations: no limitations - History of Present Illness Initial Comments: Itzel Mann 52 y/o female came to ER initilaly with nausea/vomiting after thanksgiving then it went away followed by watery diarrhea on and off since then.Denies ill contact,no fever or chills ,no blood in stool but with abdominal cramps and feels lots of gas in abdomen. Timing/Duration: other - see hpi Severity: moderate Improving Factors: nothing Worsening Factors: eating Associated Symptoms: other - see hpi Allergies/Adverse Reactions: Allergies NO KNOWN ALLERGY Allergy (Verified 11/15/17 05:09) Home Medications: Ambulatory Orders metFORMIN HCL [Glucophage] 500 mg PO BID 30 Days #60 tab 03/09/18 Acetaminophen W/ Codeine [Tylenol w/Codeine 300-30 mg] 1 tab PO TID PRN #10 tab 09/09/18 Glimepiride 2 mg PO ACBK #30 tab 09/09/18 Promethazine Tab [Phenergan Tablet] 25 mg PO .Q4H PRN #14 tab 09/09/18 Review of Systems - Review of Systems Gastrointestinal/Abdominal: States: see HPI, diarrhea All other Systems: Reviewed and Negative, No Change from Baseline Past Medical History (General) - Patient Medical History Hx Seizures: No Hx Stroke: No Hx Asthma: No Hx of COPD: No Hx Cardiac Disorders: No Hx Congestive Heart Failure: No Hx Pacemaker: No Hx Hypertension: Yes Hx Thyroid Disease: Yes Hx Diabetes: No Hx Gastroesophageal Reflux: No Hx Renal Disease: No Hx Cancer: No Hx Hepatitis C: Yes Hx MRSA: Yes - Abdomen Wound MRSA Source:: Wound Surgical History: cholecystectomy, other - c- section ,bladder lift,hernia repair,btl - Vaccination History Hx Tetanus, Diphtheria Vaccination: No Hx Influenza Vaccination: No Hx Pneumococcal Vaccination: No - Social History Hx Tobacco Use: Yes Hx Alcohol Use: No 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, Meth Hx Physical Abuse: No Hx Emotional Abuse: No - Activities of Daily Living Patient Lives Alone: No - Female History Patient : No Family Medical History - Family History Mother Name: Nuris Sandoval Age (years): 67 Living Status: Still Living Hx Family Asthma: No Hx Family Congestive Heart Failure: No Hx Family Hypertension: No Hx Family Stroke: No Hx Cardiac Disease: No Hx Family Diabetes: No Hx Family Cancer: Yes - breast Hx Family;Other: Thyroid-mom,sister Physical Exam - Physical Exam General Appearance: Alert, Comfortable, No apparent distress Eye Exam: bilateral normal Ears, Nose, Throat: hearing grossly normal, normal ENT inspection Neck: non-tender, full range of motion, supple Respiratory: lungs clear, normal breath sounds Cardiovascular/Chest: normal peripheral pulses, regular rate, rhythm, no murmur Peripheral Pulses: radial,right: 2+, radial,left: 2+ Gastrointestinal/Abdominal: non tender, soft, no organomegaly Extremity: no pedal edema, no calf tenderness Neurologic: alert, oriented x 3 Skin Exam: normal color, warm/dry Progress - Progress Progress: 09/09/18 15:43 Vital Signs - 8 hr 09/09/18 09/09/18 09/09/18 13:12 13:53 15:00 Temperature 99.2 F Pulse Rate [ 90 84 81 left brachial] Respiratory 20 18 18 Rate Blood Pressure 129/84 129/73 127/80 [left brachial] O2 Sat by Pulse 95 94 L 97 Oximetry - Results/Orders Results/Orders: 09/09/18 15:41 FSBS [GLUCOSE, FINGER STICK] Stat Laboratory Results - last 24 hr 09/09/18 09/09/18 13:48 13:48 WBC 6.8 RBC 4.54 Hgb 14.0 Hct 41.9 MCV 92.4 MCH 30.8 MCHC 33.4 RDW 13.0 Plt Count 177 MPV 8.8 Absolute Neuts (auto) 4.40 Absolute Lymphs (auto) 1.60 Absolute Monos (auto) 0.60 Absolute Eos (auto) 0.10 Absolute Basos (auto) 0.10 Neutrophils % 64.9 Lymphocytes % 23.7 Monocytes % 8.9 Eosinophils % 1.7 Basophils % 0.8 Sodium 136 Potassium 3.2 L Chloride 99 L Carbon Dioxide 28 Anion Gap 12.2 BUN 7 Creatinine 0.79 BUN/Creatinine Ratio 8.9 L Random Glucose 457 H* Serum Osmolality 289.7 Calcium 9.0 Total Bilirubin 0.4 AST 76 H ALT 98 H Alkaline Phosphatase 88 Serum Total Protein 6.7 Albumin 3.1 L Globulin 3.6 H Albumin/Globulin Ratio 0.9 L NEGATIVE C.DIFF;Discuss test result with patient. Departure - Departure Clinical Impression: Nausea vomiting and diarrhea Hyperglycemia due to type 2 diabetes mellitus Qualifiers: Diabetes mellitus terminal operations supervisor insulin use: without terminal operations supervisor use Qualified Code(s ): E11.65 - Type 2 diabetes mellitus with hyperglycemia Disposition: Discharge to Home or Self Care Condition: Fair Departure Forms: ED Discharge - Pt. Copy, Patient Portal Self Enrollment Instructions: Diarrhea in Adolescents and Adults, [place] Diet, Diabetes Exchange Diet, Diabetic Meal Planning , Diabetes and Diet, Diabetes Diet Referrals: Mira Reddy NP [Primary Care Provider] - 1-2 Weeks Prescriptions: Acetaminophen W/ Codeine [Tylenol w/Codeine 300-30 mg] 1 tab PO TID PRN #10 tab PRN Reason: Pain Glimepiride 2 mg PO ACBK #30 tab Promethazine Tab [Phenergan Tablet] 25 mg PO .Q4H PRN #14 tab PRN Reason: Abdominal Cramping Home Medications: Ambulatory Orders metFORMIN HCL [Glucophage] 500 mg PO BID 30 Days #60 tab 03/09/18 Acetaminophen W/ Codeine [Tylenol w/Codeine 300-30 mg] 1 tab PO TID PRN #10 tab 09/09/18 Glimepiride 2 mg PO ACBK #30 tab 09/09/18 Promethazine Tab [Phenergan Tablet] 25 mg PO .Q4H PRN #14 tab 09/09/18 Additional Instructions: Follow up with your primary Md 11 September 2018;Return to ER as needed
[2018-09-09 13:29] VITALS: TEMP 99.2
[2018-09-09] MEDS: LACTATED RINGERS 1,000 ML IVS ONE (13:47)
[2018-09-09] MEDS: INSULIN, REG.(HUMAN) 100 U/ML VIAL IV ONE (15:16)
[2018-09-09] MEDS: POTASSIUM CHLORIDE 20 MEQ TAB PO ONE (15:18)
[2018-09-09 16:00] VITALS: BP 138/86; O2SAT 96
== END 2018-09-09 16:01 | disposition home or self-care (01) ==
LOC: ER 12:54
DX: R11.2 Nausea with vomiting, unspecified (principal); R19.7 Diarrhea, unspecified; E11.65 Type 2 diabetes mellitus with hyperglycemia; I10 Essential (primary) hypertension; E07.9 Disorder of thyroid, unspecified; Z86.19 Personal history of other infectious and parasitic diseases; Z87.891 Personal history of nicotine dependence; Z90.49 Acquired absence of other specified parts of digestive tract; Z79.84 Long term (current) use of oral hypoglycemic drugs; Z79.899 Other long term (current) drug therapy
CPT/HCPCS: 36415; 80053; 82948; 85025; 87324; 87449; J7120

== ENCOUNTER 2019-03-29 | Emergency (ER) | payer SELFPAY | END 2019-03-29 17:30 | disposition home or self-care (01) ==

== ENCOUNTER → 2019-08-15 | Outpatient (CLI) | payer MEDICAID ==
--- NOTE | 2019-08-20 15:02 | MAM ---
EXAM DESCRIPTION: 3D Screening BILATERAL : Digital Mammography. CLINICAL HISTORY: 53 years Female SCREEN . No complaints and no personal history of breast cancer. Mother with breast cancer and remote family history of breast cancer. Menarche age 11. Childbirth. Postmenopausal 5 years. No HRT. Lifetime risk of developing breast cancer (Tyrer-Cuzick model)(%): 16.6 COMPARISON: Bilateral screening digital breast tomosynthesis 03 August 2017. Diagnostic right breast tomosynthesis and targeted ultrasound and October 2017. TECHNIQUE: Bilateral CC and MLO projection full-field images, digital tomosynthesis mammographic technique. Bilateral digital 2-D full-field MLO images. CAD not available for tomosynthesis or 2-D images. FINDINGS: The breast parenchymal density pattern is: Scattered areas of fibroglandular density. No skin thickening or nipple retraction. Bilateral axillary lymph nodes. Bilateral solitary microcalcifications.. No new focal, stellate mass or density, focal asymmetry , and no suspicious microcalcifications bilaterally. Stable mammograms compared to prior study. IMPRESSION: Benign exam. BIRAD CATEGORY: 2 BENIGN FINDINGS. RECOMMENDATIONS: FOLLOW UP: Routine digital bilateral mammographic screening, one year interval from date Written communication explaining the IMPRESSION and follow-up, will be mailed to the patient and referring health care provider. According to the [employer], yearly mammograms are recommended starting at age 40 and continuing as long as a woman is in good health. Any breast change noted on a breast self-exam should be reported promptly to the patient's healthcare provider. Breast MRI is recommended for women with an approximately 20-25% or greater lifetime risk of breast cancer, including women with a strong family history of breast or ovarian cancer and women who have been treated for Hodgkin's disease. A negative mammographic report should not delay tissue diagnosis in patients with significant clinical history or physical findings. Extremely dense breast tissue limits the sensitivity of digital mammography. Electronically signed by: Pepe Altamirano MD 08/20/2019 3:00 PM [employer]
== END ==
LOC: MAMMO 13:30
PROVIDERS: ATTEND Nurse Practitioner Family
DX: Z12.31 Encounter for screening mammogram for malignant neoplasm of breast (principal)

== ENCOUNTER → 2020-04-08 | Outpatient (CLI) | payer MEDICAID ==
--- NOTE | 2020-04-08 09:24 | CT ---
EXAM DESCRIPTION: Abdoment/Pelvis w/o Contrast CLINICAL HISTORY: 54 years Female, MICROSCOPIC HEMATURIA COMPARISON: None available. TECHNIQUE: Contiguous 3 mm axial images were obtained from the lung bases to the level of the proximal femora without the administration of intravenous or oral contrast. Sagittal and coronal reconstructions were reviewed. FINDINGS: Limited evaluation of the solid organs due to the lack of intravenous contrast. THORAX: 5 mm calcified granuloma is identified in the left lower lobe. LIVER: The liver demonstrates diffuse fatty infiltration. Slightly nodular contour is noted which can be seen with cirrhosis. GALLBLADDER: Surgically absent. PANCREAS: Appears normal with no cystic or solid lesions. SPLEEN: Normal ADRENAL GLANDS: Normal with no nodules or masses. KIDNEYS: Both kidneys are symmetric in size and contour with no hydronephrosis or nephrolithiasis or perinephric fluid collections. The visualized ureters appear grossly unremarkable. STOMACH: Not well distended limiting detailed evaluation. SMALL BOWEL: The small bowel loops demonstrate variable degrees of distention with no abnormal dilatation or other signs to suggest bowel obstruction. LARGE BOWEL: Multiple diverticula are noted throughout the visualized colon, with no acute inflammation. The appendix is well-visualized and appears normal No evidence of free intraperitoneal air or fluid. RETROPERITONEUM: The abdominal aorta is nonaneurysmal with moderate atherosclerosis. The inferior vena cava is normal in size and caliber. No abnormally enlarged retroperitoneal lymph nodes are identified. URINARY BLADDER:The urinary bladder is well-distended with no gross abnormality. The uterus and adnexa appear normal. ADDITIONAL FINDINGS: None. BONES: Mild degenerative changes are identified in the visualized bones.No evidence of osteophytic or osteoblastic lesions. IMPRESSION: 1. No evidence of bilateral renal/ureteric/bladder calculi. 2. Possible cirrhosis with mild splenomegaly. 3. Colonic diverticulosis with no acute diverticulosis. This exam was performed according to our departmental dose-optimization program, which includes automated exposure control, adjustment of the mA and/or kV according to patient size and/or use of iterative reconstruction technique. Electronically signed by: Erlinda Monaco MD 04/08/2020 9:22 AM CDT
== END ==
LOC: CT 09:00
PROVIDERS: ATTEND Urology
DX: R31.0 Gross hematuria (principal); K57.30 Diverticulosis of large intestine without perforation or abscess without bleeding; R16.1 Splenomegaly, not elsewhere classified; K76.9 Liver disease, unspecified

== ENCOUNTER → 2020-07-11 | Outpatient (CLI) | payer MEDICAID, OTHER ==
--- NOTE | 2020-07-11 13:15 | RAD ---
EXAM DESCRIPTION: Foot,Left 3 Views CLINICAL HISTORY: 54 years Female, FOOT PAIN LEFT COMPARISON: None. TECHNIQUE: 3 view radiograph of the left foot. IMPRESSION: No acute displaced fracture. No dislocation. Normal anatomic alignment of the tarsal bones. Intact Lisfranc joint. Mild arthrosis about the midfoot. Tiny calcaneal enthesophyte at the Achilles tendon insertion. Mild osteophyte ptosis at the dorsal aspect of the navicular cuneiform joint. No radiographically apparent soft tissue abnormality. Electronically signed by: Chandler Leija MD 07/11/2020 1:13 PM CDT
--- NOTE | 2020-07-11 16:17 | US ---
EXAM DESCRIPTION: Abdomen,Limited CLINICAL HISTORY: 54 years Female, CHRONIC VIRAL HEPATITIS C COMPARISON: None. TECHNIQUE: Multiple sonographic images of the abdomen with color Doppler analysis. FINDINGS: Liver: Liver measures 17.7 cm. Increased and heterogeneous parenchymal echogenicity. Cirrhotic morphology. Main portal vein patent with appropriate directional flow. Biliary Tree: Gallbladder surgically absent. No intrahepatic biliary dilatation. Common bile duct diameter of 6-7 mm. Pancreas: Normal visualized portions of the pancreas. Right kidney: Normal size and location without hydronephrosis. Vasculature: Unremarkable upper abdominal aorta and IVC. Abdominal cavity: No ascites. IMPRESSION: 1. No acute sonographic abnormality of the abdomen. 2. Heterogeneous and echogenic enlarged liver with micronodular contour likely representing cirrhosis. 3. Gallbladder surgically absent. Mild dilated common bile duct can be seen from reservoir effect. Electronically signed by: Chandler Leija MD 07/11/2020 4:15 PM CDT [facility]
== END ==
LOC: RAD 08:28
PROVIDERS: ATTEND Orthopaedic Surgery
DX: M19.072 Primary osteoarthritis, left ankle and foot (principal); M77.32 Calcaneal spur, left foot; M25.775 Osteophyte, left foot; B18.2 Chronic viral hepatitis C; R16.0 Hepatomegaly, not elsewhere classified; K76.9 Liver disease, unspecified; Z90.49 Acquired absence of other specified parts of digestive tract; K83.9 Disease of biliary tract, unspecified